=== PATIENT | male | born 1960 | race Caucasian/White ===

== ENCOUNTER → 2023-01-11 08:53 | Outpatient (BNVA) | payer OTHER, SELFPAY | PROVIDERS: Visit Provider Specialist | DX: M25.551 Pain in right hip (principal); M16.11 Unilateral primary osteoarthritis, right hip | CPT/HCPCS: 73502 ==

== ENCOUNTER → 2023-03-08 09:57 | Outpatient (BNVA) | payer OTHER, SELFPAY | PROVIDERS: Visit Provider Specialist | DX: M16.11 Unilateral primary osteoarthritis, right hip (principal); Z01.818 Encounter for other preprocedural examination | CPT/HCPCS: 36415; 73502; 80053; 81003; 85025 ==

== ENCOUNTER 2023-03-17 12:36 | Observation (INO) | payer OTHER, SELFPAY ==
[2023-03-17] VITALS (16 sets, daily range): BP systolic 109–153; BP diastolic 54–101; PULSE 65–94; RESP 15–18; TEMP 36.3–36.7; O2SAT 93–100; BMI 32.0
[2023-03-17] MEDS: sodium chloride 0.9% 1,000 ML 30 ML IV (08:31)
[2023-03-17] MEDS: acetaminophen 1,000 MG/100 ML PIGGYBACK 400 MG IV ×2 (08:49→16:45)
[2023-03-17] MEDS: CELEcoxib 200 mg Capsule 400 MG PO (08:50)
[2023-03-17] MEDS: gabapentin 300 mg Capsule PO (08:51)
--- NOTE | 2023-03-17 09:12 | ANES.PREANE2 ---
Pre-Anesthetic Assessment Height/Weight: Height 1.85 m Weight 110.223 kg Temp Pulse Resp BP Pulse Ox O2 Del Method 97.3 F L 84 18 146/101 98 Room Air 03/17/23 08:23 03/17/23 08:23 03/17/23 08:23 03/17/23 08:23 03/17/23 08:23 03/17/23 08:25 Operation Date: 03/17/23 09:30 Proposed Procedures p Right Total Hip Arthroplasty(Right) - Lucrecia Bee MD Familial anesthetic complications: None Was Beta Zbigniew taken within 24 hours: N/A Was Clonidine taken within 24 hours: N/A Last intake: Intake Last Liquid Date 03/16/23 Last Liquid Time 18:30 Last Solid Date 03/16/23 Last Solid Time 18:30 Social Alcohol (a couple of beers a night) and No tobacco Exam alert, oriented x 3, clear to auscultation bilaterally and regular rate & rhythm Airway Mallampati: Class III Dentition: full CV/HEM Hypertension Anesthetic Plan ASA status: 2 Anesthesia: MAC and Regional (specify below) (spinal) Risk of > 500 ml blood loss (7ml/kg in children): No Medications/Allergies Home Medications Medication Instructions Recorded Confirmed Last Taken Type lisinopril 10 mg tablet 10 mg PO DAILY 01/11/23 03/16/23 03/16/23 History indomethacin 50 mg capsule 50 mg PO QID PRN Inflammation 03/11/23 03/16/23 02/14/23 History Allergies Allergy/AdvReac Type Severity Reaction Status Date / Time No Known Allergies Allergy Verified 03/17/23 08:34 Current Medications Generic Name Dose Route Start Last Admin Trade Name Freq PRN Reason Stop Dose Admin Sodium Chloride 1,000 mls @ 30 mls/hr 03/17/23 08:15 03/17/23 08:31 Sodium Chloride 0.9% IV 03/18/23 08:14 30 mls/hr .Q24H ANDREW Administration PFSH Anesthesia Surgical History No history of previous surgery Social History Smoking and tobacco/nicotine status: never used tobacco/nicotine Data Anesthesia Cardiac Studies: No Data to Display
--- NOTE | 2023-03-17 09:17 | W.PM.OPSUD ---
Surgery/Procedure H&P Update DATE OF PROCEDURE: March 17, 2023 DATE H&P PERFORMED: 03/11/23 H&P UPDATE INFORMATION: I have reviewed H&P completed within last 30 days, I have examined patient prior to procedure and No changes to prior documentation PRIMARY INDICATION FOR PROCEDURE: Advanced osteoarthritis of the RIGHT hip with [id number] articulation. Limitations to ambulation and activities of daily living. PLANNED PROCEDURE: Operation Date: 03/17/23 09:30 Proposed Procedures p Right Total Hip Arthroplasty(Right) - Lucrecia Bee MD
[2023-03-17] MEDS: ceFAZolin 2,000 MG in sodium chloride 0.9% (plus) 50 ML 100 MG IV ×2 (10:01→17:03)
[2023-03-17] MEDS: ceFAZolin 1,000 mg SDV 1000 MG IRRIGATION (10:49)
[2023-03-17] MEDS: vancomycin 1,000 MG SDV 1000 MG INTRA-ARTI (10:51)
--- NOTE | 2023-03-17 12:54 | XRR_ITS ---
PROCEDURE INFORMATION: Exam: XR Right Hip Exam date and time: 03/17/2023 1:13 PM Age: 62 years old Clinical indication: Device placement; Other: RT hip replacement; Prior surgery; Surgery date: Post-operative (0-2 days); Surgery type: Total RT hip; Additional info: Status post right total hip arthroplasty. TECHNIQUE: Imaging protocol: Radiologic exam of the right hip. Views: 1 view hip with pelvis when performed. COMPARISON: CR XR hip RT 2-3V wo/w pel* [id number] 03/08/2023 10:01 AM FINDINGS: Bones/joints: Right hip replacement. On this single AP view appearance prosthesis is unremarkable. DJD left hip. Degenerative changes lower lumbar spine. Soft tissues: Unremarkable. XR/XR hip RT 1V wo/w pel [id number] IMPRESSION: No acute findings.
--- NOTE | 2023-03-17 13:01 | P.OP_ITS ---
Operative Report Date of procedure: March 17, 2023 Pre-op diagnosis: Severe degenerative osteoarthritis of the right hip Post-op diagnosis: Severe degenerative osteoarthritis of the right hip Post-op findings: Severe degenerative osteoarthritis of the right hip Procedure done: Right total hip arthroplasty Implants: The Staley total hip system with a size 54 mm by E alpha code Trident II Tritanium acetabular shell with an MDM liner size 42 mm inner diameter by E alpha code.? A size 5 Accolade II 127? neck angle hip stem with a size 28 mm x - 2.7 mm femoral head and a lutheran MDM X3 insert size 42E Specimens removed/disposition: Bone, disposed of Surgeon: Lucrecia Bee MD Arranging Funeral Director: Fina Qureshi NP, who was necessary for positioning, retraction, and manipulation of the leg. Anesthesia: Spinal (With MAC, ASA 2) Estimated blood loss (mL): 300 IV fluids (mL): 1,000 Urine output (mL): 450 Complications: None Findings: Severe degenerative osteoarthritis with deformity of the femoral head and large osteophytes. The hip was stable at 90 degrees of flexion with 70 degrees of internal rotation and 20 degrees of adduction. Condition: stable Disposition: PACU (Then return to floor for postop rehabilitation and pain management) Brief History: This 62-year-old gentleman presented to my office with complaints of severe right hip pain. The angeline tried conservative measures including physical therapy. Therapy did not help, and in fact, it made the pain worse. He has been taking meloxicam and this also did not help. He had significant issues with activities of daily living, and the pain kept him awake at night. He could not Walk long distances secondary to the pain. When seen in the office, total hip arthroplasty was discussed. The patient wished to proceed. Risks and complications were discussed with him and consents were signed. Procedure: Patient was brought to the operating theater.? He was transferred to the operating room table and subsequently administered a spinal anesthesia with MAC, ASA 2.? Following administration of adequate anesthesia, the patient was placed in full lateral position and held in position with a pegboard.? The patient's right lower extremity was then prepped and draped in usual fashion utilizing DuraPrep.? It was draped free.? Following prepping and draping, a surgical pause was performed.? At the time of surgical pause, we identified the site and side of surgery.? We also identified the patient and preoperative surgical markings.?The patient's operative leg was compared to the opposite leg.? Confirmation was made of equipment availability.? Additionally, the patient's preoperative IV antibiotic, Ancef 2 g, and TXA administration was confirmed as well.? X-rays were also reviewed. Following the surgical pause, an incision was made centering over the patient's greater trochanter continuing proximally and distally as necessary to allow access to the hip joint.? Dissection continued through skin and soft tissues using a scalpel, and hemostasis was obtained using electrocautery. The tensor fascia serenity was identified and incised longitudinally but there was minimal fascial component to the tensor tissues.? Sciatic nerve was identified and protected throughout the surgical procedure.? A Charnley U retractor was placed after the tensor fascia serenity had been incised longitudinally, and the sciatic nerve had been identified.? The hip was internally rotated, and the piriformis muscle was identified and tagged. Piriformis muscle along with the remaining short external rotators were then incised from the posterior aspect of the hip joint.? These were retracted posteriorly.? The capsule was entered in a T-type fashion with the edges being tagged, and subsequently the hip was dislocated.? The labrum was excised with further excision accomplished once the femoral head was removed.? Following hip dislocation, a femoral neck osteotomy was accomplished in the appropriate position.? The head was measured, but it was quite deformed.? Subsequently, it was sent to pathology for microscopic evaluation.? We then evaluated the acetabulum. The femur was retracted anteriorly.? Soft tissues were retracted, and the labrum was removed.? We then began reaming.? Once the femoral head was removed, there was noted to be significant loss of cartilage over the head with the previously noted deformity and within the acetabulum.? We reamed to a size 53 to allow for a size 54 acetabular shell.? The acetabulum was impacted into position.? The MDM liner was then impacted into position with care being taken to assure it seated appropriately.? It was noted that the acetabulum matched the bony anatomy.? The cup was noted to seat nicely and had good fixation upon impact. Attention was directed to the proximal femur.? The proximal femur was lifted out of the wound.? A canal finder was passed after the box chisel.? The reamer was used to lateralize.? We then began broaching. We broached sequentially and had excellent fit and fill with the size 5 broach. ? A trial reduction was attempted with a +0 mm femoral head initially, but this was Garland to not give the stability Desired.? We then placed a +4 mm femoral head which was felt to provide the above-noted stability.? This was felt to be excellent stability with good lutheran of leg lengths. Therefore, trial components were removed after the hip was dislocated.? The size 5 Accolade II 127? neck angle stem was impacted into position without difficulty and onto this was placed a +4 mm x 28 mm femoral head which had been assembled into the MDM insert size 42E.? With a +4 mm femoral head, we had the above-noted stability.? The stem was noted to seat nicely prior to placement of the femoral head.? The wound was copiously irrigated with 20 mL of Betadine and 500 mL of normal saline mixed together.? Subsequently, we suctioned this out and irrigated the wound copiously with lactated Ringer's.? At this time, with all components in appropriate position, the hip was reduced.? Following reduction of the prosthesis once again, we confirmed the stability of the hip.? Leg lengths were also felt to be satisfactory. Being satisfied with the prosthesis, attention was directed to closure.? Closure was accomplished with 0 Vicryl in the capsular tissues.? Piriformis was reattached with 0 Vicryl as well.? Tensor fascia serenity was closed with 0 Vicryl in an interrupted fashion.? The subcutaneous tissues were closed with 2-0 Monocryl.? Vancomycin powder and a Gelfoam thrombin mixture was placed into the wound as well.? The skin was closed with a running 3-0 Monocryl followed by Dermabond Prineo followed by OpSite.? The patient was placed in an abduction pillow.? He was returned the Recovery Room in a satisfactory condition and will be discharged to the floor for postoperative rehabilitation and pain management.? There were no complications or specimens. Related Problem List Diagnoses (1) Primary osteoarthritis of right hip:
--- NOTE | 2023-03-17 13:20 | ANE.PACU2 ---
Inpatient post-anesthesia follow up: Airway intact: Yes Vital signs: Temperature 97.4 F Pulse Rate 69 Respiratory Rate 18 Blood Pressure 130/80 Pulse Oximetry 97 Oxygen Delivery Me thod Room Air Oxygen Flow Rate 6 Fraction of Inspir ed Oxygen Hydration adequate: Yes Nausea and vomiting: No Pain level: 1 Mental status: Baseline
[2023-03-17] MEDS: gabapentin 300 mg Capsule 600 MG PO (14:29)
[2023-03-17] MEDS: chlorhexidine gluconate 0.12% Btl 473 mL 30 ML MUCOUS MEM ×3 (14:29→20:38)
[2023-03-17] MEDS: CELEcoxib 200 mg Capsule PO (16:43)
[2023-03-17] MEDS: oxyCODONE 5 mg IR Tab/Cap PO (16:52)
[2023-03-17] MEDS: calcium carbonate 500 mg Chew Tablet 1000 MG PO (17:03)
[2023-03-17] MEDS: iron polysaccharide complex 150 mg Capsule PO (17:03)
[2023-03-17] MEDS: mupirocin oint 22 gm 1 APPLIC NASAL (17:03)
[2023-03-17] MEDS: HYDROcodone-acetaminophen 10-325 mg Tablet 1 TAB PO (19:30)
[2023-03-18] VITALS: BP 111/76; PULSE 76; RESP 15; TEMP 36.8; O2SAT 95
[2023-03-18] MEDS: acetaminophen 1,000 MG/100 ML PIGGYBACK 400 MG IV (00:30)
[2023-03-18] MEDS: HYDROcodone-acetaminophen 10-325 mg Tablet 1 TAB PO ×2 (00:30→04:37)
[2023-03-18] MEDS: ceFAZolin 2,000 MG in sodium chloride 0.9% (plus) 50 ML 100 MG IV ×2 (02:15→09:57)
[2023-03-18] MEDS: CELEcoxib 200 mg Capsule PO (04:37)
[2023-03-18 05:13] VITALS: BP 124/72; PULSE 77; RESP 15; TEMP 36.8; O2SAT 95
[2023-03-18 06:19] LABS: Basophils # 0.1 10^3/uL (0.0-0.1); Basophils % 0.6 %; Eosinophils # 0.2 10^3/uL (0.0-0.8); Eosinophils % 2.9 %; Hematocrit 46.4 % (37-53); Lymphocytes # 1.6 10^3/uL (0.8-4.8); Lymphocytes % 19.8 %; Mean Corpuscular Hemoglobin 33.4 pg (27-33); Mean Corpuscular Volume 101.3 fl (82-101); Mean Platelet Volume 12.6 fL (7.4-10.4); Monocytes # 0.8 10^3/uL (0.2-0.9); Neutrophils # 5.26 10^3/uL (1.8-7.7); Neutrophils % 66.1 %; Nucleated Red Blood Cells % 0 %; Platelet Count 183 10^3/cmm (157-399); Red Blood Count 4.58 10^6/uL (3.85-5.65); White Blood Count 7.97 10^3/uL (3.29-11.43)
[2023-03-18 06:39] LABS: Anion Gap 11.2 (5-19); Blood Urea Nitrogen 11 mg/dL (8-23); Calcium 8.4 mg/dL (8.5-10.5); Carbon Dioxide 22 mmol/L (22-29); Chloride 104 mmol/L (98-107); Creatinine Clr Calc Pharmacy 127.8183; Glomerular Filtration Rate 98.6 mL/min (90-130); Glucose 96 mg/dL (65-115); Osmolality Calculated 275 mOsm/kg (285-295); Potassium 4.2 mmol/L (3.5-5.1); Sodium 133 mmol/L (136-145)
[2023-03-18 07:32] VITALS: BP 148/82; PULSE 70; RESP 16; TEMP 36.7; O2SAT 94
[2023-03-18 08:40] VITALS: RESP 16
[2023-03-18] MEDS: oxyCODONE 5 mg IR Tab/Cap PO (08:40)
[2023-03-18] MEDS: mupirocin oint 22 gm 1 APPLIC NASAL (09:29)
[2023-03-18] MEDS: lisinopril 10 mg Tablet PO (09:29)
[2023-03-18] MEDS: aspirin 325 mg EC Tablet PO (09:29)
[2023-03-18] MEDS: multivitamin therapeutic Tablet 1 TAB PO (09:29)
[2023-03-18] MEDS: iron polysaccharide complex 150 mg Capsule PO (09:29)
[2023-03-18] MEDS: cholecalciferol (vitamin D3) 1,000 unit Tablet 1000 UNIT PO (09:29)
[2023-03-18] MEDS: chlorhexidine gluconate 0.12% Btl 473 mL 30 ML MUCOUS MEM ×2 (09:30→12:28)
--- NOTE | 2023-03-18 10:43 | PC.CHAP ---
Pastoral Care Encounter/Spiritual Assessment Type of Contact [] Declined shade matcher visit [] Patient/Family/Request visit [] Outpatient visit [] Follow-up visit [] Physician referral [] Code/Alert [x] Routine visit [] Staff referral [] Actively dying [] Patient sleeping [] Family support [] [] Out of room [] Palliative care [] [x] Receiving care in room [] Pre-surgical visit [] Trauma [] Long length of stay [] ICU visit [] Other: Relational/Emotional Strength [x] Patient feels connected with others/family/visitors/staff [] Distress [] Loneliness/isolation [] Abandonment Spirituality of Patient [x] Person of Fidelina [] Attends Mandaeism of their Fidelina [x] Believes in Prayer [] Reads Bible or Yazidism materials [] There are Spiritual issues to be addressed [employer] Gr[employer] Supervisor Interventions [x] Prayer [x] Active listening [x] Non-anxious presence [x] Spiritual/emotional support [] Crisis/trauma care [x] Spiritual counseling [] Bereavement support [] Provided bereavement packet [] Provided Bible/devotional materials [] Provided toy/stuffed animal, coloring book to patient or family member [] Provided Communion [] Anointing/[place] [] Salvation [] Completed spiritual assessment [] Other: Impact on Illness or Injury [] Angry [] Fearful [] Anxious [] Often cries [] Exhaustion [] Unable to work [] Unable to attend faith [] Unable to walk/stand [] Unable to read [] Unable to drive [] Unable to eat/drink [] Unable to sleep [] Unable to be with family [] Patient intubated [] Other: Summary hip replacement surgery feels good [facility] has a postive attitude Time spent with patient 10 mins
[2023-03-18 11:30] VITALS: BP 133/76; PULSE 67; RESP 17; TEMP 36.8; O2SAT 95
--- NOTE | 2023-03-18 12:28 | PM.DCS ---
Discharge Providers Date of Admission: 03/17/23 12:36 Date of Discharge: March 18, 2023 Attending Provider at Admission: Lucrecia Bee MD Attending Provider at Discharge: Lucrecia Bee MD Primary Care Provider: Natali Mccormack MD Diagnoses at Discharge Discharge Diagnosis (1) S/P total right hip arthroplasty: Status: Acute Permanent problem details: Date of procedure: March 17, 2023 Pre-op diagnosis: Severe degenerative osteoarthritis of the right hip Procedure done: Right total hip arthroplasty Implants: The Bala total hip system with a size 54 mm by E alpha code Trident II Tritanium acetabular shell with an MDM liner size 42 mm inner diameter by E alpha code. A size 5 Accolade II 127? neck angle hip stem with a size 28 mm x -2.7 mm femoral head and a mu-ism MDM X3 insert size 42E (2) Primary osteoarthritis of right hip: Status: Acute Reason for Visit Reason for Visit: Brief History: This 62-year-old gentleman presented to my office with complaints of severe right hip pain.? The angeline tried conservative measures including physical therapy.? Therapy did not help, and in fact, it made the pain worse.? He has been taking meloxicam and this also did not help.? He had significant issues with activities of daily living, and the pain kept him awake at night.? He could not Walk long distances secondary to the pain.? When seen in the office, total hip arthroplasty was discussed.? The patient wished to proceed.? Risks and complications were discussed with him and consents were signed prior to proceedure. Tolerated surgery well. Physical Exam Const: COMMON NORMALS: no acute distress, average body habitus, patient oriented x3 and alert GENERAL APPEARANCE: cooperative and comfortable ORIENTATION/CONSCIOUSNESS: Yes awake HENMT: COMMON NORMALS: normocephalic and atraumatic HEAD & SCALP: normocephalic and atraumatic Eye: GENERAL EYE: appearance normal, both eyes and all related structures Chest: COMMONS NORMALS: normal inspection of the chest Resp: COMMON NORMALS: normal respiratory effort EFFORT & INSPECTION: Yes able to speak in complete sentences and Yes symmetric chest movement Extremity: RIGHT LOWER EXTREMITY: Yes hip joint Right hip: Yes inspection (Incision healing well. No sign or symptom of infection.), Yes palpation (Pain with direct palpation over the incision. No pain with ROM), Yes ROM (AROM: Flex 100 - not pushed beyond. ), Yes neurovascular exam (Sensation intact to light touch. 2+ DP and PT pulses. rapid cap refill. ) and Yes other and Yes lower leg (Right calf is soft, nontender. No warmth, redness or pain.) Neuro: COMMON NORMALS: patient oriented x3 SENSORIUM/ORIENTATION: Yes alert Psych: COMMON NORMALS: mental status grossly normal APPEARANCE: Yes grossly normal ATTITUDE: Yes calm and Yes engaged ATTENTION/CONCENTRATION: Yes attention grossly intact Skin: COMMON NORMALS: no rashes or lesions noted GENERAL SKIN EXAM: no rashes or lesions noted Urinary Catheter Management: Nixon: Cath Placed During This Visit: yes, but has since been removed by the nurse Reason for Continuing Indwelling Catheter: Perioperative Use in Selected Surgeries Urinary Catheter Date of Insertion: 03/17/23 Urinary Catheter Time of Insertion: 10:25 Date Urinary Catheter Removed: 03/18/23 Time Urinary Catheter Discontinued: 05:00 Discharge Data Studies Completed and Pending Completed Studies During Hospitalization Category Date Time Status XR hip RT 1V wo/w pel [id number] Routine Exams 03/17/23 12:54 Completed Pending at discharge Category Date Time Status Complete Blood Count w/Auto AM LABS Lab 03/19/23 04:00 Ordered Complete Blood Count w/Auto AM LABS Lab 03/20/23 04:00 Ordered Pathology: Surgical [PTH] Routine Pth 03/17/23 14:32 Received Radiology Impressions Hip X-Ray 03/17/23 12:54 IMPRESSION: No acute findings. Laboratory Results WBC 7.97 10^3/uL (3.29-11.43) 03/18/23 05:25 RBC 4.58 10^6/uL (3.85-5.65) 03/18/23 05:25 Hgb 15.30 g/dL (11.27-16.99) 03/18/23 05:25 Hct 46.4 % (37-53) 03/18/23 05:25 MCV 101.3 fl (82-101) H 03/18/23 05:25 MCH 33.4 pg (27-33) H 03/18/23 05:25 MCHC 33.0 g/dL (30-55) 03/18/23 05:25 RDW 13.0 % (12.1-15.1) 03/18/23 05:25 Plt Count 183 10^3/cmm (157-399) 03/18/23 05:25 MPV 12.6 fL (7.4-10.4) H 03/18/23 05:25 Neut % (Auto) 66.1 % 03/18/23 05:25 Lymph % (Auto) 19.8 % 03/18/23 05:25 [place] % (Auto) 10.0 % 03/18/23 05:25 Eos % (Auto) 2.9 % 03/18/23 05:25 Baso % (Auto) 0.6 % 03/18/23 05:25 Neut # (Auto) 5.26 10^3/uL (1.8-7.7) 03/18/23 05:25 Lymph # (Auto) 1.6 10^3/uL (0.8-4.8) 03/18/23 05:25 [place] # (Auto) 0.8 10^3/uL (0.2-0.9) 03/18/23 05:25 Eos # (Auto) 0.2 10^3/uL (0.0-0.8) 03/18/23 05:25 Baso # (Auto) 0.1 10^3/uL (0.0-0.1) 03/18/23 05:25 Nucleated RBC % (auto) 0 % 03/18/23 05:25 Nucleated RBCs # 0.0 /100WBC 03/18/23 05:25 Sodium 133 mmol/L (136-145) L 03/18/23 05:25 Potassium 4.2 mmol/L (3.5-5.1) 03/18/23 05:25 Chloride 104 mmol/L (98-107) 03/18/23 05:25 Carbon Dioxide 22 mmol/L (22-29) 03/18/23 05:25 Anion Gap 11.2 (5-19) 03/18/23 05:25 BUN 11 mg/dL (8-23) 03/18/23 05:25 Creatinine 0.8 mg/dL (0.7-1.2) 03/18/23 05:25 GFR Calculation 98.6 mL/min (90-130) 03/18/23 05:25 Glucose 96 mg/dL (65-115) 03/18/23 05:25 Calculated Osmolality 275 mOsm/kg (285-295) L 03/18/23 05:25 Calcium 8.4 mg/dL (8.5-10.5) L 03/18/23 05:25 Imaging Xray Ortho: Radiologist's impression: Postoperative images were obtained on March 17, 2023 immediately after surgery, while patient was in PACU. X-ray findings are consistent with stable right hip replacement. On this single AP view appearance prosthesis is unremarkable. No acute changes noted. Additional Data from Hospital Stay The patient was admitted under observation status following same-day surgery for right total hip arthroplasty.? He tolerated the procedure well.? On the first postoperative day, the patient was seen in his room.? She was doing well with physical therapy.? His pain was well managed with oral pain medication.? He had no complaints and wished to be discharged to home.? There was no evidence of DVT.? Hia large outer dressing was removed and underneath, there was minimal ecchymosis.? There was no significant swelling.? The calf is soft and nontender with intact motor function.? There was no evidence of DVT.? The patient therefore was discharged home with home health. Procedures Performed Right total hip arthroplasty on March 17, 2023. Vitals Last Vital Signs Temp 98.2 F 03/18/23 11:30 Pulse 67 03/18/23 11:30 Resp 17 03/18/23 11:30 BP 133/76 03/18/23 11:30 Pulse Ox 95 03/18/23 11:30 O2 Del Method Nasal Cannula 03/18/23 07:32 O2 Flow Rate 6 03/17/23 13:00 Discharge Plan Discharge Patient Disposition: Home Health Service Condition: Stable Prescriptions: New acetaminophen 500 mg Tablet 1,000 mg PO Q8H Qty: 90 0RF aspirin 325 mg Tablet,Delayed Release (Dr/Ec) 325 mg PO DAILY Qty: 60 0RF celecoxib 200 mg Capsule 200 mg PO Q12H Qty: 120 0RF hydrocodone-acetaminophen 10-325 mg Tablet 1 tab PO Q6H PRN (Reason: Moderate Pain) Qty: 20 0RF Continued lisinopril 10 mg tablet 10 mg PO DAILY Held indomethacin 50 mg capsule 50 mg PO QID PRN (Reason: Inflammation) Hold Instructions: Resume on 04/16/23. May resume at completion of Celebrex Rx Instructions: administer with food or milk Discharge Orders: Discharge Order (Routine); Ordered 03/18/23 Ordered By: Fina Qureshi Referrals: Lucrecia Bee MD [Physician] - 03/31/23 1:30 pm Natali Mccormack MD [Primary Care Provider] - (We have notified your physician's clinic of the need for a follow-up appointment to be scheduled. If you have not heard from them within the next 2 business days, please call them directly. You may also reach out to our community marketing manager at [phone] and she can assist you.) Discharge Diet: Advance as tolerated and Usual diet Discharge Activity: Increase activity as tolerated, Limit activity as instructed and As per PT/OT instructions Patient Instructions: Osteoarthritis (DC), Total Hip Replacement (DC), Opioid Safety Activity Restrictions/Additional Instructions: Posterior precautions. You may weight-bear as tolerated. Work with physical therapy for gait training, ambulation, and strengthening. Keep your wound covered until the dressing comes off on its own or we take it off in the clinic. You may shower, but do not soak. Ice and elevation to right lower extremity/hip.? You may shower, but do not soak your hip in water.? Discharge Attestations Time Spent in Discharge Care*: greater than 30 min Specific Discharge Activities: educating patient and educating and/or supporting family/caregiver Status at Discharge: Cognitive status at discharge: cognitively intact, Behavioral status at discharge: cooperative, Functional status at discharge: uses cane/walker, Overall status at discharge: patient is progressing back to baseline Quality Metrics Clinical Quality Measures [ No reported AMI, CVA or VTE this stay] Coding Level of Care Code Acute Code for Chg Fwd Diagnoses S/P total right hip arthroplasty Z96.641 Primary osteoarthritis of right hip M16.11
== END 2023-03-18 12:30 | disposition home health service (06) ==
LOC: MEDSURG 12:36
PROVIDERS: Nurse Practitioner; Admitting Provider Specialist; PCP Family Medicine; Visit Provider Specialist
PROC: (CPT 27130; principal; 2023-03-17 09:30)
DX: M16.11 Unilateral primary osteoarthritis, right hip (principal); I10 Essential (primary) hypertension
CPT/HCPCS: 27130; 12345; 36415; 51702; 73501; 80048; 85025; 88305; 97110; 97116; 97161; 97165; 97530; C1776; G0378; J0131; J0690; J2250; J2704; J3370; J7030

== ENCOUNTER → 2023-03-29 08:48 | Outpatient (BNVA) | payer OTHER, SELFPAY | PROVIDERS: PCP Family Medicine; Visit Provider Nurse Practitioner | DX: Z96.641 Presence of right artificial hip joint (principal) | CPT/HCPCS: 73502 ==

== ENCOUNTER → 2023-04-29 09:44 | Outpatient (BNVA) | payer OTHER, SELFPAY | PROVIDERS: PCP Family Medicine; Visit Provider Nurse Practitioner | DX: Z96.641 Presence of right artificial hip joint (principal); M16.11 Unilateral primary osteoarthritis, right hip | CPT/HCPCS: 73502 ==